=== PATIENT | female | born 1995 | race Caucasian/White ===

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

== ENCOUNTER 2017-01-20 13:24 | Emergency (ER) | payer MEDICAID ==
[~2017-01-20] VITALS: Ht 160 cm; Wt 84.8 kg
[~2017-01-20 13:24] MED LIST changes: +ZITHROMAX Z PA250 MG PO; +ZOFRAN ODT4 MG PO
[2017-01-20] MEDS ORDERED: HYDROXYZINE50 MG PO (14:46)
--- NOTE | 2017-01-20 14:47 | Emergency Room Report ---
History of Present Illness Time Seen by [id number] Presenting Problem in Triage Pt arrived:Walked Presenting Problem:PATIENT ENDORSING THAT SHE WAS AT WORK AND HAD ANXIETY ATTACK AND THEY CHECKED HER BLOOD PRESSURE. STATES, "IT WAS HIGH." UNABLE TO GIVE A NUMBER. PATIENT PRESENTS PLAYING ON CELL PHONE DURING ASSESSMENT. 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 N Clinical Suspician of Infection? N Mental Status: 1 - Regular (Normal Baseline) Sepsis Risk:Possible Sepsis Risk Have you (or family members/close friends) recently traveled outside the [place]? N If Yes, where/when: Have you had exposure to infectious disease within the past month? TB? Other? Specify: Source patient, RN notes reviewed, family, RN/MD Exam Limitations no limitations Comment This is a 21-year-old girl arriving to the emergency room with her mother after having an anxiety attack secondary to her breaking up with her current boyfriend. Patient has been reportedly seen hyperventilating, complaining with generalized weakness, perioral numbness, fingertips numbness, tremulous, very emotional, tearful. Patient is also concerned with her blood pressure being elevated, 159/92. ALLERGIES Coded Allergies: amoxicillin (Intermediate, I-HIVES 12/01/15) Home Medications Active Scripts Ondansetron (Zofran 4MG Odt) 4 MG PO Q6HP PRN NAUSEA AND VOMITING #6 ODT Prov: 10/05/16 History Medical History General CAD? No Angina: No NM: No Hypertension? No Hyperlipidemia? No CHF? No DVT? No PE? No COPD? No Asthma? No Anemia? No GERD? No Gastric ulcers? No GI Bleed? No Hernia? No Thyroid Problems? No Hypothyroidism? No CVA? No Seizures? No Diabetes? No Insulin Dependent: No Insulin Pump: No Home FSBS? No Renal Insuffiency? No End Stage Renal Disease? No UTI? Yes Stones? No BPH? No GB Disease: No Nephritic Syndrome? No Asplenia? No Hepatitis? No Sickle Cell Disease? No Arthritis? No Migraines? No Cataracts? No Glaucoma? No MRSA? No HIV? No TB? No Anxiety? No Depression? No Cancer? No More? 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 No: respiratory distress. Lung Sounds bilateral: normal breath sounds, lungs clear. 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 No Comment Poni evaluation patient appears medically stable, in no acute distress. Advised patient of need to follow-up with PCP regarding further management of her anxiety/panic attacks. Results/Orders Current Medication Orders Sig/Shobha Start time Last Medication Dose Route Stop Time Status Admin Lorazepam 0 .STK-MED ONE 01/20 1451 DC .ROUTE Lorazepam 1 MG ONCE ONE 01/20 1445 DC 01/20 PO 01/20 1446 1454 Orders Procedure Date/time Status 12 LEAD EKG-HARPREETSON (INITIAL) 01/20 UNK Active Departure Departure Time of Disposition 1445 Disposition DC Home or Self Care(routine) Clinical Impression Primary Impression: Anxiety attack Condition STABLE Referrals Arnav Reeder APRN (Family): 2 Days-Call Office if not better Patient Instructions DI for Anxiety -- Adult Additional Instructions Please follow-up with your PCP if not better within 2 days. Take the medications prescribed as directed. Discharge Counseling Counseled pt/family regarding diagnosis, test results, medications/RX, home care, follow up needs Comment Please follow-up with your PCP if not better within 2 days. Take the medications prescribed as directed. Prescriptions Current Visit Scripts Hydroxyzine Hcl (Hydroxyzine) 50 MG PO Q8HP PRN anxiety #20 CAP ED Critical Care Critical Care No at 0905
--- NOTE | 2017-01-20 14:47 | Emergency Room Report ---
History of Present Illness Time Seen by [id number] Presenting Problem in Triage Pt arrived:Walked Presenting Problem:PATIENT ENDORSING THAT SHE WAS AT WORK AND HAD ANXIETY ATTACK AND THEY CHECKED HER BLOOD PRESSURE. STATES, "IT WAS HIGH." UNABLE TO GIVE A NUMBER. PATIENT PRESENTS PLAYING ON CELL PHONE DURING ASSESSMENT. 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 N Clinical Suspician of Infection? N Mental Status: 1 - Regular (Normal Baseline) Sepsis Risk:Possible Sepsis Risk Have you (or family members/close friends) recently traveled outside the [place]? N If Yes, where/when: Have you had exposure to infectious disease within the past month? TB? Other? Specify: Source patient, RN notes reviewed, family, RN/MD Exam Limitations no limitations Comment This is a 21-year-old girl arriving to the emergency room with her mother after having an anxiety attack secondary to her breaking up with her current boyfriend. Patient has been reportedly seen hyperventilating, complaining with generalized weakness, perioral numbness, fingertips numbness, tremulous, very emotional, tearful. Patient is also concerned with her blood pressure being elevated, 159/92. ALLERGIES Coded Allergies: amoxicillin (Intermediate, I-HIVES 12/01/15) Home Medications Active Scripts Ondansetron (Zofran 4MG Odt) 4 MG PO Q6HP PRN NAUSEA AND VOMITING #6 ODT Prov: 10/05/16 History Medical History General CAD? No Angina: No CT: No Hypertension? No Hyperlipidemia? No CHF? No DVT? No PE? No COPD? No Asthma? No Anemia? No GERD? No Gastric ulcers? No GI Bleed? No Hernia? No Thyroid Problems? No Hypothyroidism? No CVA? No Seizures? No Diabetes? No Insulin Dependent: No Insulin Pump: No Home FSBS? No Renal Insuffiency? No End Stage Renal Disease? No UTI? Yes Stones? No BPH? No GB Disease: No Nephritic Syndrome? No Asplenia? No Hepatitis? No Sickle Cell Disease? No Arthritis? No Migraines? No Cataracts? No Glaucoma? No MRSA? No HIV? No TB? No Anxiety? No Depression? No Cancer? No More? 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 No: respiratory distress. Lung Sounds bilateral: normal breath sounds, lungs clear. 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 No Comment Poni evaluation patient appears medically stable, in no acute distress. Advised patient of need to follow-up with PCP regarding further management of her anxiety/panic attacks. Results/Orders Current Medication Orders Sig/Shobha Start time Last Medication Dose Route Stop Time Status Admin Lorazepam 0 .STK-MED ONE 01/20 1451 DC .ROUTE Lorazepam 1 MG ONCE ONE 01/20 1445 DC 01/20 PO 01/20 1446 1454 Orders Procedure Date/time Status 12 LEAD EKG-HARPREETSON (INITIAL) 01/20 UNK Active Departure Departure Time of Disposition 1445 Disposition DC Home or Self Care(routine) Clinical Impression Primary Impression: Anxiety attack Condition STABLE Referrals Arnav Reeder APRN (Family): 2 Days-Call Office if not better Patient Instructions DI for Anxiety -- Adult Additional Instructions Please follow-up with your PCP if not better within 2 days. Take the medications prescribed as directed. Discharge Counseling Counseled pt/family regarding diagnosis, test results, medications/RX, home care, follow up needs Comment Please follow-up with your PCP if not better within 2 days. Take the medications prescribed as directed. Prescriptions Current Visit Scripts Hydroxyzine Hcl (Hydroxyzine) 50 MG PO Q8HP PRN anxiety #20 CAP ED Critical Care Critical Care No at 0905
[2017-01-20 14:53] VITALS: BP 141/85
== END 2017-01-20 14:58 | disposition home or self-care (01) ==
LOC: ER 13:24
DX: F41.1 Generalized anxiety disorder (principal); F43.0 Acute stress reaction

== ENCOUNTER 2017-03-22 11:54 | Emergency (ER) | payer MEDICAID ==
[~2017-03-22] VITALS: Ht 157.5 cm; Wt 86.2 kg
[~2017-03-22 11:54] MED LIST changes: +HYDROXYZINE50 MG PO
--- OUTSIDE RECORDS SUMMARY | 2017-03-22 12:07 | External Medical Summary Rpt | CCD ---
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 Name Role Phone TREVON LESTER Unavailable Unavailable Juan Worthington MD, Unavailable Unavailable Juan MCCOY MD, Unavailable Unavailable SAJI MCCOY MD [facility] Unavailable Unavailable INC, [facility], [facility]available Unavailable [facility], [facility]available Unavailable [facility] Unavailable Unavailable [facility], [facility] Henry Oneal MD, Unavailable Unavailable [facility], Unavailable Unavailable PLL[facility], [facility], [facility], Unavailable Unavailable [facility] Unavailable Unavailable [id number] [address] [id number], [facility] [id number] [address] [phone] SCIFRES, SCIFRES Unavailable Unavailable VEENA JYOTI DO, Unavailable Unavailable VEENA JYOTI DO [facility] Unavailable Unavailable DEPT [facility], [facility] Marcus English Unavailable Unavailable TANIYA LOONEY, Marcus Le MD, Unavailable Unavailable Marcus Le MD Purpose Continuity of Care Document - 07-05-2012 through 2016 Problems Code Diagnosis DOS Provider Status K529 NONINFECTIV 10-05-2016 [facility] ITIS & COLITIS UNS H5203 HYPERMETROP 09-03-2016 [facility] IA BILATERAL X58871 AC 08-22-2016 [facility] SUPPURATIVE PHYSICIAN OM W/O GROUP RUPT EAR DRUM RECUR RT EAR J069 ACUTE UPPER 07-27-2016 [facility] RESPIRATORY INFECTION UNSPECIFIED K5289 OTH SPEC 07-27-2016 [facility] NONINFECTIV E GASTROENTER ITIS & COLITIS N369 URETHRAL 06-01-2016 [facility] DISORDER UNSPECIFIED J029 ACUTE 05-27-2016 [facility] PHARYNGITIS [facility], [facility] UNSPECIFIED R05 COUGH 05-27-2016 [facility] R0602 SHORTNESS 05-27-2016 [facility] OF BREATH [facility], [facility] R0989 OTH SPEC SX 05-27-2016 [place] [facility] THE IMAGING ASS CIRC & RESP SYS J00 ACUTE 05-26-2016 [facility] NASOPHARYNG PHYSICIAN ITIS COMMON GROUP COLD R112 NAUSEA WITH 05-26-2016 [facility] VOMITING PHYSICIAN UNSPECIFIED GROUP J0190 ACUTE 05-22-2016 [facility] SINUSITIS UNSPECIFIED C24508N INSECT BITE 05-10-2016 [facility] RT FRONT INC WALL THORAX INIT T03937A INSECT BITE 05-10-2016 [facility] LT FRONT INC WALL THORAX INIT K47891Y INSECT BITE 05-10-2016 [facility] NONVENOM [facility], UNS FRONT PLLC WALL THORAX INIT L39347H INSECT BITE 05-10-2016 [facility] ABDOMINAL [facility], WALL PLLC INITIAL ENCOUNTER L299 PRURITUS 05-09-2016 [facility] UNSPECIFIED PHYSICIANS, PLLC C9160VA INSCT BITE 05-09-2016 [facility] OTH PART INC HEAD INIT ENCNTR V21987O INSECT BITE 05-09-2016 [facility] NONVENOMOUS INC RT LOWER LEG INITIAL ENC R21394T INSECT BITE 05-09-2016 [facility] NONVENOMOUS INC LT LOWER LEG INITIAL ENC N920 EXCESS & 05-06-2016 [facility] FREQUENT PHYSICIANS MENSTRUATIO GROUP N W/REGULAR CYCLE N944 PRIMARY 05-06-2016 [facility] DYSMENORRHE PHYSICIANS A GROUP R102 PELVIC AND 05-06-2016 [facility] PERINEAL PHYSICIANS PAIN GROUP R1084 GENERALIZED 05-06-2016 [facility] ABDOMINAL PAIN R1030 LOWER 05-03-2016 [facility]BDOMINAL [facility] PAIN PLLC UNSPECIFIED G38441 ACUTE 04-16-2016 [facility] SUPPURATIVE PHYSICIAN OM W/O GROUP RUPT EAR DRUM BILAT N3000 ACUTE 03-13-2016 [facility] CYSTITIS [facility], WITHOUT PLLC HEMATURIA N390 URINARY 03-13-2016 [facility] TRACT [facility], INFECTION PLLC SITE NOT SPECIFIED U84392 PAIN IN 12-01-2015 [place] LEFT [facility] D53026M CONTUSION 12-01-2015 [facility] LT GREAT [facility], TOE W/O PLLC DAMAGE NAIL INIT ENC K140 GLOSSITIS 11-21-2015 [facility] INC L089 LOCAL INF 11-21-2015 [facility] THE SKIN & PHYSICIANS, SUBCUTANEOU PLLC S TISSUE UNS K8020 CALCULUS GB 08-09-2015 [place] W/O MEDICAL CHOLECYSTIT IMAGING ASS IS W/O OBSTRUCTION R1011 RIGHT UPPER 08-09-2015 [facility] PAIN INC R109 UNSPECIFIED 08-09-2015 [place] ABDOMINAL [facility]ICAL PAIN IMAGING ASS K8050 CALCULUS BD 08-08-2015 [facility] CHOLANGITIS INC /CHOLECYST W/O OBST R1033 PERIUMBILIC 08-08-2015 [place] PAIN [facility]ICAL [facility] R079 CHEST PAIN 07-01-2015 [place] UNSPECIFIED [facility]ICAL IMAGING ASS R091 PLEURISY 07-01-2015 [facility] INC L600 INGROWING 06-13-2015 [facility] L259 UNSPECIFIED 06-04-2015 [facility] CONTACT PHYSICIANS DERMATITIS GROUP UNSPECIFIED CAUSE M2570 OSTEOPHYTE 04-18-2015 [facility] UNSPECIFIED PODIATRY JOINT D29311E UNS OPEN 04-18-2015 [facility] WOUND UNS [facility]ICIANS, TOES PLLC W/DAMAGE NAIL INITIAL Z3041 ENCOUNTER 03-12-2015 [facility] DEPT E JORGE CONTRACEPTI VE PILLS Z3189 ENCOUNTER 03-12-2015 [facility] FOR OTHER DISTRICT PROCREATIVE HLTH DEPT MANAGEMENT JORGE S62340 SWIMMERS 03-06-2015 [facility] EAR [facility], BILATERAL PLLC H6093 UNSPECIFIED 03-06-2015 [facility] OTITIS [facility], EXTERNA PLLC BILATERAL J020 STREPTOCOCC 03-06-2015 [facility] AL [facility], PHARYNGITIS PLLC Z136 ENCOUNTER 02-26-2015 [facility] SCREENING DISTRICT FOR HLTH DEPT CARDIOVASCU JORGE LAR DISORDERS Z308 ENCOUNTER 02-26-2015 [facility] FOR OTHER DISTRICT CONTRACEPTI HLTH DEPT VE JORGE MANAGEMENT 2449 UNSPECIFIED 02-03-2015 [facility], HYPOTHYROID PLLC ISM 7804 DIZZINESS 02-03-2015 [facility] GID[facility] 5990 URINARY 01-22-2015 [facility] TRACT DISTRICT INFECTION HLTH DEPT SITE NOT JORGE SPECIFIED 5589 OTH&UNSPEC 01-14-2015 [facility] NONINFECTIO [facility] US INC GASTROENTER ITIS&COLITI S V2501 GENERAL 12-25-2014 [facility] DEPT N ORAL JORGE CONTRACEPTS 382.9 382.9 07-10-[address] [address] [facility] MEDIA NOS Hospital 462 462 ACUTE 07-10-2013 [facility] PHARYNGITIS [facility] 465.9 465.9 ACUTE 07-10-2013 [facility] URI NOS [facility] 706.1 706.1 ACNE 06-28-2013 [facility] NEC [facility] 382.00 382.00 AC 06-27-[address] [facility] [address] [facility] MEDIA [facility] Hospital V14.1 V14.1 06-27-[address] [facility] HX-ANTIBIOT [facility] ALLERGY [facility] NEC 523.00 523.00 05-29-2013 [facility] GINGIVITIS, Hospital PLAQUE INDUCED V14.0 V14.0 05-29-[address] [facility] [address]X-P[address] [facility] IN ALLERGY Hospital 842.10 842.10 04-26-[address] [facility] [address] [facility] HAND [facility] E849.0 E849.0 04-26-2013 [facility] ACCIDENT IN [facility] E885.9 E885.9 FALL 04-26-[address] [facility] SLIPPING, Hospital TRIPPING, OR STUMBLING [facility] 380.10 380.10 04-04-2013 [facility] INFEC [facility] EXTERNA NOS 521.00 521.00 02-03-2013 [facility] DENTAL [facility] CARIES 826.0 826.0 FX 08-08-2012 [facility] PHALANX, [facility] FOOT-CLOSED Hospital E917.3 E917.3 08-08-2012 [facility] FURNIT W/O [facility] Hospital F41.0 PANIC DISORDER WITHOUT AGORAPHOBIA [id number] J02.9 ACUTE PHARYNGITIS , UNSPECIFIED K12.2 CELLULITIS AND ABSCESS OF MOUTH K52.9 NONINFECTIV E GASTROENTER ITIS AND COLITIS, UNSPECIFIED K80.50 CALCULUS OF BILE DUCT W/O CHOLANGITIS OR CHOLECYST W/O OBST N39.0 URINARY TRACT INFECTION, SITE NOT SPECIFIED R09.1 PLEURISY R10.9 UNSPECIFIED ABDOMINAL PAIN S06.0X9A CONCUSSION W LOSS OF CONSCIOUSNE SS OF UNSP DURATION, INIT S16.1XXA STRAIN OF MUSCLE, FASCIA AND TENDON AT NECK LEVEL, INIT S60.229A CONTUSION OF UNSPECIFIED HAND, INITIAL ENCOUNTER S90.122A CONTUSION OF LEFT LESSER TOE(S) W/O DAMAGE TO NAIL, INIT W57.XXXA BIT/STUNG BY NONVENOM INSECT \T\ OTH NONVENOM ARTHROPODS, INIT Allergies, Adverse Reactions, Alerts Type Drug Allergy Adverse Reaction to Substance Substance Reaction Severity Amoxicillin I-RASH Mild Medications Na ND Rx Da Fi Fi Am Da Di Ph RX Ph St me C No te ll ll ou ys ag ar # ys at rm s nt no ma ic us Or Da si cy ia de te s n re d AZ 50 11 11 0 60 5 RI 12 Wa Ac IT 11 -0 -0 .0 TE 06 ld ti HR 10 3- 3- 00 88 en ve OM 78 20 20 AI 7 YC 76 17 17 D Me IN 6 PH li AR ss 25 MA a 0 CY E MG 03 TA 93 BL 8 ET # 03 93 HY 16 09 10 [address] 71 -0 -0 .0 00 TE ti OX 40 6- 6- 00 01 ve YZ 08 20 20 19 AI IN 31 17 17 84 D E 0 97 PH HC AR L MA 50 CY MG #3 93 TA 8 BL ET ON 65 05 06 6. 2 00 RI Ac DA 86 -2 -2 00 00 TE ti NS 20 3- 3- 0 01 ve ET 39 20 20 18 AI RO 01 17 17 50 D N 0 28 PH OD AR T MA 4 CY MG #3 TA 93 BL 8 ET HY 00 05 06 [address] 40 -2 -2 .0 00 TE ti OC 60 4- 3- 00 01 ve OD 12 20 20 18 AI ON 40 17 17 53 D -A 1 24 PH CE AR TA MA ND CY NO PH #3 93 7. 8 5- 32 5 CE 00 02 03 20 10 00 RI Ac FD 78 -1 -2 .0 00 TE ti IN 12 6- 4- 00 01 ve IR 17 20 20 17 AI 66 17 17 15 D 30 0 57 PH 0 AR MG MA CY CA PS #3 UL 93 E 8 NE 24 02 03 10 10 00 RI Ac OM 20 -1 -2 .0 00 TE ti YC 80 6- 4- 00 01 ve IN 63 20 20 17 AI -P 56 17 17 15 D OL 2 58 PH YM AR YX MA IN CY -H C #3 EA 93 R 8 LANDAVERDE SP CI 00 01 02 20 10 00 RI Ac VA 14 -1 -1 .0 00 TE ti OF 39 6- 7- 00 01 ve LO 92 20 20 16 AI XA 80 17 17 70 D CI 1 09 PH N AR HC MA L CY 50 0 #3 MG 93 8 TA B AZ 50 01 02 6. 5 00 RI Ac IT 11 -1 -1 00 00 TE ti HR 10 2- 7- 0 01 ve OM 78 20 20 16 AI YC 76 17 17 64 D IN 6 17 PH AR 25 MA 0 CY MG #3 TA 93 BL 8 ET ON 65 01 02 9. 3 00 RI Ac DA 86 -1 -1 00 00 TE ti NS 20 0- 0- 0 01 ve ET 39 20 20 16 AI RO 01 17 17 60 D N 0 87 PH OD AR T MA 4 CY MG #3 TA 93 BL 8 ET BR 64 01 02 50 5 00 RI Ac OM 37 -1 -1 .0 00 TE ti PH 60 0- 0- 00 01 ve EN 65 20 20 16 AI IR 71 17 17 60 D -P 6 89 PH SE AR UD MA OE CY PH ED #3 -D 93 M 8 SY R CE 16 01 02 30 30 00 RI Ac TI 71 -0 -1 .0 00 TE ti RI 40 6- 0- 00 01 ve ZI 27 20 20 16 AI NE 10 17 17 56 D 2 91 PH HC AR L MA 10 CY MG #3 93 TA 8 BL ET NA 00 12 01 60 30 00 RI Ac VA 09 -2 -2 .0 00 TE ti OX 31 1- 0- 00 01 ve EN 00 20 20 16 AI 60 [address] 1 20 PH AR 50 MA 0 CY MG #3 TA 93 BL 8 ET PO 62 12 01 52 30 00 RI Ac LY 17 -2 -2 7. 00 TE ti ET 50 1- 0- 00 01 ve HY 44 20 20 0 16 AI LE 23 16 17 35 D NE 1 24 PH AR GL MA YC CY OL #3 33 93 50 8 PO WD CL 63 12 01 15 5 00 RI Ac IN 30 -0 -0 .0 00 TE ti DA 40 1- 9- 00 01 ve MY 69 20 20 16 AI CI 30 16 17 05 D N 1 26 PH HC AR L MA 30 CY 0 MG #3 93 CA 8 PS UL E AC 51 01 0 No ET 07 -1 AM 90 3- Lo IN 16 20 ng OP 19 14 er HE 9H N Ac W/ ti CO ve DE IN E #3 TA K BE 57 11 0 No NZ 66 -0 ON 40 6- Lo AT 13 20 ng AT 38 13 er E 8 10 Ac 0 ti MG ve CA PS UL E LI 00 09 0 No DO 05 -2 CA 48 0- Lo IN 50 20 ng E 01 13 er 2% 6 Ac ti SC ve OU S 15 ML UD C AC 51 09 0 No ET 07 -2 AM 90 0- Lo IN 16 20 ng OP 19 13 er HE 9H N Ac W/ ti CO ve DE IN E #3 TA K Ib 62 09 0 No up 58 -1 ro 40 6- Lo fe 74 20 ng n 60 13 er 40 1 0M Ac G ti Ta ve bl et LA [address] 40 -1 AT 97 9- Lo ED 95 20 ng 30 13 er RI 9 NG Ac ER ti S ve IN JE CT IO N Sa 63 02 0 No li 80 -1 ne 70 9- Lo 10 20 ng Fl 07 13 er us 5 h Ac 10 ti ML ve Sy ri ng e ON 00 02 0 No DA 64 -1 NS 16 9- Lo ET 08 20 ng RO 02 13 er N 5 HC Ac L ti 4 ve MG /2 ML AL Vital Signs 07-10-2013 15:24 Name Value Interpretat Reference Comment ion Range Body 98.1 [degF] Temperature BP 75 mm[Hg] Diastolic BP Systolic 122 mm[Hg] Heart 88 /min Rate/Pulse O2% 98 % Respiratory 20 /min Rate 07-10-2013 14:52 Name Value Interpretat Reference Comment ion Range BP 66 mm[Hg] Diastolic BP Systolic 126 mm[Hg] Heart 94 /min Rate/Pulse O2% 97 % Respiratory 20 /min Rate 06-28-2013 14:48 Name Value Interpretat Reference Comment ion Range Body 98.4 [degF] Temperature BP 77 mm[Hg] Diastolic BP Systolic 147 mm[Hg] Heart 77 /min Rate/Pulse O2% 97 % Respiratory 22 /min Rate 06-28-2013 14:45 Name Value Interpretat Reference Comment ion Range Body 98.4 [degF] Temperature BP 77 mm[Hg] Diastolic BP Systolic 147 mm[Hg] Heart 77 /min Rate/Pulse O2% 97 % Respiratory 22 /min Rate 06-27-2013 17:28 Name Value Interpretat Reference Comment ion Range BP 66 mm[Hg] Diastolic BP Systolic 142 mm[Hg] Heart 100 /min Rate/Pulse O2% 99 % Respiratory 20 /min Rate 05-29-2013 20:49 Name Value Interpretat Reference Comment ion Range Body 99.0 [degF] Temperature BP 86 mm[Hg] Diastolic BP Systolic 120 mm[Hg] Heart 80 /min Rate/Pulse O2% 98 % Respiratory 16 /min Rate 05-29-2013 19:55 Name Value Interpretat Reference Comment ion Range BP 62 mm[Hg] Diastolic BP Systolic 129 mm[Hg] Heart 97 /min Rate/Pulse O2% 97 % Respiratory 16 /min Rate 04-26-2013 17:50 Name Value Interpretat Reference Comment ion Range Body 98.3 [degF] Temperature BP 78 mm[Hg] Diastolic BP Systolic 123 mm[Hg] Heart 94 /min Rate/Pulse O2% 96 % Respiratory 20 /min Rate 04-26-2013 17:49 Name Value Interpretat Reference Comment ion Range Body 98.3 [degF] Temperature BP 78 mm[Hg] Diastolic BP Systolic 123 mm[Hg] Heart 94 /min Rate/Pulse O2% 96 % Respiratory 20 /min Rate 04-04-2013 10:15 Name Value Interpretat Reference Comment ion Range Body 98.4 [degF] Temperature BP 75 mm[Hg] Diastolic BP Systolic 129 mm[Hg] Heart 81 /min Rate/Pulse O2% 100 % Respiratory 18 /min Rate 04-04-2013 10:14 Name Value Interpretat Reference Comment ion Range BP 75 mm[Hg] Diastolic BP Systolic 129 mm[Hg] Heart 81 /min Rate/Pulse O2% 100 % Respiratory 18 /min Rate 03-22-2013 18:13 Name Value Interpretat Reference Comment ion Range Body 98.6 [degF] Temperature BP 63 mm[Hg] Diastolic BP Systolic 110 mm[Hg] Heart 94 /min Rate/Pulse O2% 99 % Respiratory 18 /min Rate 03-22-2013 17:36 Name Value Interpretat Reference Comment ion Range BP 62 mm[Hg] Diastolic BP Systolic 126 mm[Hg] Heart 77 /min Rate/Pulse O2% 96 % Respiratory 20 /min Rate 02-03-2013 02:27 Name Value Interpretat Reference Comment ion Range BP 82 mm[Hg] Diastolic BP Systolic 143 mm[Hg] Heart 93 /min Rate/Pulse O2% 100 % Respiratory 20 /min Rate 01-30-2013 08:59 Name Value Interpretat Reference Comment ion Range BP 62 mm[Hg] Diastolic BP Systolic 136 mm[Hg] Heart 100 /min Rate/Pulse O2% 98 % Respiratory 20 /min Rate 08-08-2012 18:19 Name Value Interpretat Reference Comment ion Range BP 72 mm[Hg] Diastolic BP Systolic 121 mm[Hg] Heart 63 /min Rate/Pulse O2% 98 % 07-05-2012 19:11 Name Value Interpretat Reference Comment ion Range Body 98.3 [degF] Temperature BP 49 mm[Hg] Diastolic BP Systolic 108 mm[Hg] Heart 82 /min Rate/Pulse O2% 99 % Respiratory 17 /min Rate 07-05-2012 19:03 Name Value Interpretat Reference Comment ion Range Body 98.3 [degF] Temperature 07-05-2012 18:06 Name Value Interpretat Reference Comment ion Range BP 67 mm[Hg] Diastolic BP Systolic 106 mm[Hg] Heart 96 /min Rate/Pulse O2% 98 % Respiratory 17 /min Rate Results Labs Lab Lab Date Result Refere Interp Status Commen Order Detail nces retati t Range on CHLAMYDIA AND GONORRHEA TESTING (12-25-2014 08:45) Chlamyd NEGATIV complet ia 015 E ed trachom 08:45 atis rRNA [Presen ce] in Unspeci fied specime n by Probe & target amplifi cation method Neisser NEGATIV complet ia 015 E ed gonorrh 08:45 oeae rRNA [Presen ce] in Unspeci fied specime n by Probe & target amplifi cation method CHLAMYDIA AND GONORRHEA TESTING (12-25-2014 08:45) COLLECT A. complet OR 015 ALFRED, ed 08:45 RN ETHNICI WHITE, complet TY 015 NON-HIS ed 08:45 PANIC KIT complet EXPIRAT 015 6 ed ION 08:45 DATE SYMPTOM NO complet S 015 ed 08:45 REASON INITIAL complet FOR 015 FAMILY ed REQUEST 08:45 PLANNIN G VISIT SPECIME URINE complet N 015 ed SOURCE 08:45 PREGNAN NO complet T 015 ed 08:45 CHART 401-53- complet NUMBER 015 5116 ed 08:45 Chlamyd Pending complet ia 015 ed trachom 08:45 atis rRNA [Presen ce] in Unspeci fied specime n by Probe & target amplifi cation method Neisser 11-2 Pending complet ia 015 ed gonorrh 08:45 oeae rRNA [Presen ce] in Unspeci fied specime n by Probe & target amplifi cation method STREP SCREEN (RAPID) (07-10-2013 13:52) STREP NEGATIV complet SCREEN 014 E ed (RAPID) 13:52 STREP SCREEN (RAPID) (03-22-2013 16:51) STREP NEGATIV complet SCREEN 013 E ed (RAPID) 16:51 COMPREHENSIVE METABOLIC PANEL (07-05-2012 18:00) Glucose 87 74-106 complet 013 mg/dL ed Bld-mCn 18:00 c BUN 8 mg/dL 7-18 complet Bld-mCn 013 ed c 18:00 Creat 0.8 0.6-1.0 complet SerPl-m 013 mg/dL ed Cnc 18:00 ESTIMAT 163 50-200 complet ED 013 ML/MIN ed CREATIN 18:00 INE CLEARAN CE Sodium 137 136-145 complet SerPl-s 013 mmoL/L ed Cnc 18:00 Potassi 3.5 3.5-5.1 complet um 013 mmoL/L ed SerPl-s 18:00 Cnc Chlorid 103 98-107 complet e 013 mmoL/L ed SerPl-s 18:00 Cnc CO2 28 21.0-32 complet SerPl-s 013 mmoL/L .0 ed Cnc 18:00 Calcium 07-05-2 8.8 8.5-10. complet 013 mg/dL 1 ed SerPl-m 18:00 Cnc Prot 07-05-2 7.5 6.4-8.2 complet SerPl-m 013 gm/dL ed Cnc 18:00 Albumin 07-05-2 3.7 3.4-5.0 complet 013 gm/dL ed SerPl-m 18:00 Cnc Globuli 07-05- 3.8 1.3-3.2 complet n 013 gm/dL ed Ser-mCn 18:00 c Albumin 1.0 UNK 1.1-1.8 complet /Glob 013 ed SerPl-m 18:00 Rto Bilirub 2 0.3 0.2-1.0 complet 013 mg/dL ed SerPl-m 18:00 Cnc AST 16 U/L 15-37 complet SerPl-c 013 ed Cnc 18:00 ALT 41 U/L 30-65 complet SerPl-c 013 ed Cnc 18:00 ALP 158 U/L 50-136 complet SerPl-c 013 ed Cnc 18:00 B-HCG Ur Ql (07-05-2012 17:04) B-HCG NEGATIV NEG complet Ur Ql 013 E ed 17:04 URINALYSIS/COMPLETE (07-05-2012 17:04) URINE YELLOW YELLOW complet COLOR 013 ed 17:04 URINE SL CLEAR complet APPEARA 013 CLOUDY ed NCE 17:04 URINE NEGATIV NEG complet GLUCOSE 013 E ed - 17:04 DIPSTIC K URINE NEGATIV NEG complet BILIRUB 013 E ed IN - 17:04 DIPSTIC K URINE 07-05- NEGATIV NEG complet KETONE 013 E mg/dL ed 17:04 URINE 07-05- 1.020 1.005-1 complet SPECIFI 013 UNK .030 ed C 17:04 GRAVITY URINE 07-05- NEGATIV NEG complet BLOOD 013 E ed 17:04 URINE 07-05- 6.5 UNK 5.0-8.5 complet PH 013 ed 17:04 URINE NEGATIV NEG complet PROTEIN 013 E mg/dL ed - 17:04 DIPSTIC K URINE 07-05- 0.2 NEG complet UROBILI 013 E.U./dL ed NOGEN - 17:04 DIPSTIC K URINE 07-05- NEGATIV NEG complet NITRATE 013 E ed - 17:04 DIPSTIC K URINE 07-05- 1+ NEG complet LEUK 013 ed ESTERAS 17:04 E Procedures Procedure DOS Code Location Performer Comment APPLICATI 93.54 SAJI ON OF DARIUS LOONEY SPLINT Encounters Encounter Start End Date Code Location Per[facility] 7 [facility] 6 6 [facility] - 6 6 [facility]PATI[facility] - 6 6 [facility] 6 6 [facility] 6 6 [facility] 6 6 [facility] 6 6 [facility] 5 5 [facility] - 5 5 [facility] OUTPATIEN [facility] - 5 5 [facility] OUTPATIEN [facility] Emergency EJ English (ER) 4 14:13 4 15:31 [facility] Emergency EJ MONTES DO (ER) 4 14:27 4 14:48 [facility] Emergency EJ MONTES DO (ER) 4 17:16 4 17:28 [facility] Emergency EJ Oneal MD (ER) 4 18:51 4 20:50 [facility] Emergency EJ MCCOY MD (ER) 3 17:31 3 17:54 [facility] Emergency EJ Worthington MD (ER) 3 09:24 3 10:15 [facility] Emergency EJ English (ER) 3 17:21 3 18:18 [facility] Marcus Sosa. Emergency JE Oneal MD (ER) 3 02:00 3 02:27 [facility] Emergency EJ FIGUEREDO (ER) 3 08:50 3 09:00 [facility] Emergency EJ Le (ER) 3 18:12 3 18:20 [facility] Emergency EJ LEMON (ER) 3 17:05 3 19:12 [facility]
--- OUTSIDE RECORDS SUMMARY | 2017-03-22 12:07 | External Medical Summary Rpt | CCD ---
Author Author , FARNAZ RGEGORYSHENA Address Unknown Phone [email or web address] Providers Care Director Global Name Role Phone TREVON LESTER Unavailable Unavailable Juan Worthington MD, Unavailable Unavailable Juan MCCOY MD, Unavailable Unavailable SAJI MCCOY MD [facility] Un[facility] Un[facility] INC, [facility], Unavailable Unavailable [facility], [facility]available Unavailable [facility] Unavailable Unavailable IMAGING ASS, [facility] Henry Oneal MD, Unavailable Unavailable [facility], Unavailable Unavailable PLLC, [facility], [facility], Unavailable Unavailable [facility] Unavailable Unavailable [id number] # [id number], [facility] [id number] # 0393 SCIFRES, SCIFRES Unavailable Unavailable VEENA JYOTI DO, Unavailable Unavailable VEENA JYOTI DO [facility] Unavailable Unavailable DEPT [facility], [facility] DEPT [facility] Marcus English Unavailable Unavailable TANIYA LOONEY, Marcus Le MD, Unavailable Unavailable Marcus Le MD Purpose Continuity of Care Document - 07-05-2012 through 2016 Problems Code Diagnosis DOS Provider Status K529 NONINFECTIV 10-05-2016 [facility], [facility]ENTER PLLC ITIS & COLITIS UNS H5203 HYPERMETROP 09-03-2016 [facility] IA BILATERAL R78261 AC 08-22-2016 [facility] SUPPURATIVE PHYSICIAN OM W/O GROUP RUPT EAR DRUM RECUR RT EAR J069 ACUTE UPPER 07-27-2016 [facility] RESPIRATORY INFECTION UNSPECIFIED K5289 OTH SPEC 07-27-2016 [facility] NONINFECTIV E GASTROENTER ITIS & COLITIS N369 URETHRAL 06-01-2016 [facility] DISORDER UNSPECIFIED J029 ACUTE 05-27-2016 [facility] PHARYNGITIS [facility]ICIANS, PLLC UNSPECIFIED R05 COUGH 05-27-2016 [facility] R0602 SHORTNESS 05-27-2016 [facility] OF BREATH PHYSICIANS, PLLC R0989 OTH SPEC SX 05-27-2016 [place] & SIGNS MEDICAL INVLV THE IMAGING ASS CIRC & RESP SYS J00 ACUTE 05-26-2016 [facility] NASOPHARYNG PHYSICIAN ITIS COMMON GROUP COLD R112 NAUSEA WITH 05-26-2016 [facility] VOMITING PHYSICIAN UNSPECIFIED GROUP J0190 ACUTE 05-22-2016 [facility] SINUSITIS UNSPECIFIED [id number] INSECT BITE 05-10-2016 [facility] RT FRONT INC WALL THORAX INIT [id number] INSECT BITE 05-10-2016 [facility] LT FRONT INC WALL THORAX INIT V82097C INSECT BITE 05-10-2016 [facility] NONVENOM PHYSICIANS, UNS FRONT PLLC WALL THORAX INIT [id number] INSECT BITE 05-10-2016 [facility] ABDOMINAL PHYSICIANS, WALL PLLC INITIAL ENCOUNTER L299 PRURITUS 05-09-2016 [facility] UNSPECIFIED PHYSICIANS, PLLC [id number] INSCT BITE 05-09-2016 [facility] OTH PART INC HEAD INIT ENCNTR D43080H INSECT BITE 05-09-2016 [facility] NONVENOMOUS INC RT LOWER LEG INITIAL ENC F78480J INSECT BITE 05-09-2016 [facility] NONVENOMOUS INC LT LOWER LEG INITIAL ENC N920 EXCESS & 05-06-2016 [facility] FREQUENT PHYSICIANS MENSTRUATIO GROUP N W/REGULAR CYCLE N944 PRIMARY 05-06-2016 [facility] DYSMENORRHE PHYSICIANS A GROUP R102 PELVIC AND 05-06-2016 [facility] PERINEAL PHYSICIANS PAIN GROUP R1084 GENERALIZED 05-06-2016 [facility] ABDOMINAL PAIN R1030 LOWER 05-03-2016 [facility] ABDOMINAL [facility]ICIANS, PAIN PLLC UNSPECIFIED V15610 ACUTE 04-16-2016 [facility] SUPPURATIVE PHYSICIAN OM W/O GROUP RUPT EAR DRUM BILAT N3000 ACUTE 03-13-2016 [facility] CYSTITIS PHYSICIANS, WITHOUT PLLC HEMATURIA N390 URINARY 03-13-2016 [facility] TRACT PHYSICIANS, INFECTION PLLC SITE NOT SPECIFIED X55995 PAIN IN 12-01-2015 [place] LEFT TOES MEDICAL IM[facility]ING ASS [id number] CONTUSION 12-01-2015 [facility] LT GREAT PHYSICIANS, TOE W/O PLLC DAMAGE NAIL INIT ENC K140 GLOSSITIS 11-21-2015 [facility] INC L089 LOCAL INF 11-21-2015 [facility] THE SKIN & PHYSICIANS, SUBCUTANEOU PLLC S TISSUE UNS K8020 CALCULUS GB 08-09-2015 [place] W/O MEDICAL CHOLECYSTIT IMAGING ASS IS W/O OBSTRUCTION R1011 RIGHT UPPER 08-09-2015 [facility] PAIN INC R109 UNSPECIFIED 08-09-2015 [place] ABDOMINAL MEDICAL PAIN IMAGING ASS K8050 CALCULUS BD 08-08-2015 [facility] CHOLANGITIS INC /CHOLECYST W/O OBST R1033 PERIUMBILIC 08-08-2015 [place] AL PAIN MEDICAL IMAGING ASS R079 CHEST PAIN 07-01-2015 [place] UNSPECIFIED MEDICAL IMAGING ASS R091 PLEURISY 07-01-2015 [facility] INC L600 INGROWING 06-13-2015 [facility] NAIL PODIATRY L259 UNSPECIFIED 06-04-2015 [facility] CONTACT PHYSICIANS DERMATITIS GROUP UNSPECIFIED CAUSE M2570 OSTEOPHYTE 04-18-2015 [facility] UNSPECIFIED PODIATRY JOINT [id number] UNS OPEN 04-18-2015 [facility] WOUND UNS PHYSICIANS, TOES PLLC W/DAMAGE NAIL INITIAL Z3041 ENCOUNTER 03-12-2015 [facility] DEPT E JORGE CONTRACEPTI VE PILLS Z3189 ENCOUNTER 03-12-2015 [facility] FOR OTHER DISTRICT PROCREATIVE HLTH DEPT MANAGEMENT JORGE L78276 SWIMMERS 03-06-2015 [facility] E[facility] PHYSICIANS, BILATERAL PLLC [...] JORGE SPECIFIED 5589 OTH&UNSPEC 01-14-2015 [facility] NONINFECTIO [facility] GASTROENTER ITIS&COLITI S V2501 GENERAL 12-25-2014 [facility] DEPT N ORAL JORGE CONTRACEPTS 382.9 382.9 07-10-2013 [facility] OTITIS [facility] MEDIA NOS Hospital 462 462 ACUTE 07-10-2013 [place] PHARYNGITIS [facility] 465.9 465.9 ACUTE 07-10-2013 [facility] URI NOS [facility] 706.1 706.1 ACNE 06-28-2013 [facility] NEC [facility] 382.00 382.00 AC 06-27-2013 [facility] SUPP OTITIS [facility] MEDIA [facility] Hospital V14.1 V14.1 06-27-2013 [place] HX-ANTIBIOT [facility] ALLERGY [facility] NEC 523.00 523.00 05-29-2013 [facility] GINGIVITIS, Hospital PLAQUE INDUCED V14.0 V14.0 05-29-2013 [facility] HX-PENICILL [facility] IN ALLERGY Hospital 842.10 842.10 04-26-2013 [facility] SPRAIN OF [facility] HAND [facility] E849.0 E849.0 04-26-2013 [facility] ACCIDENT IN [facility] E885.9 E885.9 FALL 04-26-2013 [facility] FROM [facility] SLIPPING, Hospital TRIPPING, OR STUMBLING [facility] 380.10 380.10 04-04-2013 [facility] INFEC [facility] EXTERNA NOS 521.00 521.00 02-03-2013 [facility] DENTAL [facility] CARIES 826.0 826.0 FX 08-08-2012 [facility] PHALANX, [facility] FOOT-CLOSED Hospital E917.3 E917.3 08-08-2012 [place] FURNIT W/O [facility] Hospital F41.0 PANIC DISORDER WITHOUT AGORAPHOBIA [id number] J02.9 ACUTE PHARYNGITIS , UNSPECIFIED K12.2 CELLULITIS [...] 1 24 PH CE AR TA MA NC CY NO PH #3 93 7. 8 [...] 01 02 20 10 00 RI Ac IN 14 -1 -1 .0 00 TE ti [...] 12 01 60 30 00 RI Ac IN 09 -2 -2 .0 00 TE ti [...] End Date Code Location Performer Type Date [facility] - 7 7 [facility] - 7 7 [facility] 6 6 [facility] - 6 6 [facility] 6 6 [facility] 6 6 [facility] 6 [facility] 6 6 [facility] 5 5 [facility] 5 5 [facility] - 5 5 [facility] OUTPATIEN [facility] Emergency EJ English (ER) 4 14:13 4 15:31 [facility] Emergency EJ MONTES DO (ER) 4 14:27 4 14:48 [facility] Emergency EJ MONTES DO (ER) 4 17:16 4 17:28 [facility] Emergency EJ Oneal MD (ER) 4 18:51 4 20:50 [facility] Emergency EJ MCCOY MD (ER) 3 17:31 3 17:54 [facility] Emergency EJ Worthington MD (ER) 3 09:24 3 10:15 [facility] Emergency EJ English (ER) 3 17:21 3 18:18 [facility] Marcus Sosa. Emergency EJ Oneal MD (ER) 3 02:00 3 02:27 [facility] Emergency EJ FIGUEREDO (ER) 3 08:50 3 09:00 [facility] Emergency EJ Le (ER) 3 18:12 3 18:20 [facility] Marcus Emergency EJ LEMON (ER) 3 17:05 3 19:12 [facility]
--- OUTSIDE RECORDS SUMMARY | 2017-03-22 12:09 | External Medical Summary Rpt | CCD ---
Author Author , FARNAZ OSEI Address Unknown Phone [email or web address] Care Team Providers Care Welfare Interviewer Name Role Phone TREVON LESTER Unavailable Unavailable [facility] Un[facility] Un[facility] INC, [facility], Unavailable Unavailable [facility], Unavailable Unavailable [facility] Unavailable Unavailable IM[facility]ING [facility], [facility], Unavailable Unavailable PLLC, [facility], [facility], Unavailable Unavailable [facility] Unavailable Unavailable [id number] # 0393, [facility] [address] # 0393 SCIFRES, SCIFRES Unavailable Unavailable [facility] Unavailable Unavailable DEPT [facility] DEPT JORGE Purpose Continuity of Care Document - 12-25-2014 through 2016 Problems Code Diagnosis DOS Provider Status K529 NONINFECTIV 10-05-2016 [facility] E PHYSICIANS, GASTROENTER [facility] ITIS & COLITIS UNS H5203 HYPERMETROP 09-03-2016 [facility] IA BILATERAL P88162 AC 08-22-2016 [facility] SUPPURATIVE PHYSICIAN OM W/O GROUP RUPT EAR DRUM RECUR RT EAR J069 ACUTE UPPER 07-27-2016 [facility] RESPIRATORY INFECTION UNSPECIFIED K5289 OT SPEC 07-27-2016 [facility] NONINFECTIV E GASTROENTER ITIS & COLITIS N369 URETHRAL 06-01-2016 [facility] DISORDER UNSPECIFIED J029 ACUTE 05-27-2016 [facility] PHARYNGITIS PHYSICIANS, [facility] UNSPECIFIED R05 COUGH 05-27-2016 [facility] R0602 SHORTNESS 05-27-2016 [facility] OF BREATH PHYSICIANS, [facility] R0989 OT SPEC SX 05-27-2016 [place] & SIGNS MEDICAL INVLV THE IMAGING ASS CIRC & RESP SYS J00 ACUTE 05-26-2016 [facility] NASOPHARYNG PHYSICIAN ITIS COMMON GROUP COLD R112 NAUSEA WITH 05-26-2016 [facility] VOMITING PHYSICIAN UNSPECIFIED GROUP J0190 ACUTE 05-22-2016 [facility] SINUSITIS UNSPECIFIED N12156X INSECT BITE 05-10-2016 [facility] RT FRONT INC WALL THORAX INIT P19107B INSECT BITE 05-10-2016 [facility] LT FRONT INC WALL THORAX INIT P03117Q INSECT BITE 05-10-2016 [facility] NONVENOM PHYSICIANS, UNS FRONT PLLC WALL THORAX INIT O16297R INSECT BITE 05-10-2016 [facility] ABDOMINAL PHYSICIANS, WALL PLLC INITIAL ENCOUNTER L299 PRURITUS 05-09-2016 [facility] UNSPECIFIED PHYSICIANS, PLLC [id number] INSCT BITE 05-09-2016 [facility] OTH PART INC HEAD INIT ENCNTR Q01690Q INSECT BITE 05-09-2016 [facility] NONVENOMOUS INC RT LOWER LEG INITIAL ENC N47437L INSECT BITE 05-09-2016 [facility] NONVENOMOUS INC LT LOWER LEG INITIAL ENC N920 EXCESS & 05-06-2016 [facility] FREQUENT PHYSICIANS MENSTRUATIO GROUP N W/REGULAR CYCLE N944 PRIMARY 05-06-2016 [facility] DYSMENORRHE PHYSICIANS A GROUP R102 PELVIC AND 05-06-2016 [facility] PERINEAL PHYSICIANS PAIN GROUP R1084 GENERALIZED 05-06-2016 [facility] ABDOMINAL PAIN R1030 LOWER 05-03-2016 [facility] ABDOMINAL [facility]ICIANS, PAIN PLLC UNSPECIFIED S25479 ACUTE 04-16-2016 [facility] SUPPURATIVE PHYSICIAN OM W/O GROUP RUPT EAR DRUM BILAT N3000 ACUTE 03-13-2016 [facility] CYSTITIS PHYSICIANS, WITHOUT PLLC HEMATURIA N390 URINARY 03-13-2016 [facility] TRACT PHYSICIANS, INFECTION PLLC SITE NOT SPECIFIED Q44458 PAIN IN 12-01-2015 [place] LEFT TOES [facility]ICAL [facility] V17824R CONTUSION 12-01-2015 [facility] LT GREAT PHYSICIANS, TOE W/O PLLC DAMAGE NAIL INIT ENC K140 GLOSSITIS 11-21-2015 [facility] INC L089 LOCAL INF 11-21-2015 [facility] THE SKIN & PHYSICIANS, SUBCUTANEOU PLLC S TISSUE UNS K8020 CALCULUS GB 08-09-2015 [place] W/O MEDICAL CHOLECYSTIT IMAGING ASS IS W/O OBSTRUCTION R1011 RIGHT UPPER 08-09-2015 [facility] PAIN INC R109 UNSPECIFIED 08-09-2015 [place] ABDOMINAL MEDICAL PAIN IMAGING ASS K8050 CALCULUS BD 08-08-2015 [facility] CHOLANGITIS INC /CHOLECYST W/O OBST R1033 PERIUMBILIC 08-08-2015 [place] PA[facility] MEDICAL IM[facility]ING ASS R079 CHEST PAIN 07-01-2015 [place] UNSPECIFIED MEDICAL IMAGING ASS R091 PLEURISY 07-01-2015 [facility] INC L600 INGROWING 06-13-2015 [facility] PODIATRY L259 UNSPECIFIED 06-04-2015 [facility] CONTACT PHYSICIANS DERMATITIS GROUP UNSPECIFIED CAUSE M2570 OSTEOPHYTE 04-18-2015 [facility] UNSPECIFIED PODIATRY JOINT N85740F UNS OPEN 04-18-2015 [facility] WOUND UNS PHYSICIANS, TOES PLLC W/DAMAGE NAIL INITIAL Z3041 ENCOUNTER 03-12-2015 [facility] DEPT E JORGE CONTRACEPTI VE PILLS Z3189 ENCOUNTER 03-12-2015 [facility] OTHER DISTRICT PROCREATIVE HLTH DEPT MANAGEMENT JORGE U21422 SWIMMERS 03-06-2015 [facility] PH[facility]ICIANS, BILATERAL PLLC H6093 UNSPECIFIED 03-06-2015 [facility] OTITIS PHYSICIANS, EXTERNA PLLC BILATERAL J020 STREPTOCOCC 03-06-2015 [facility] AL PHYSICIANS, PHARYNGITIS PLLC Z136 ENCOUNTER 02-26-2015 [facility] SCREENING DISTRICT FOR HLTH DEPT CARDIOVASCU JORGE LAR DISORDERS Z308 ENCOUNTER 02-26-2015 [facility] OTHER [facility] CONTRACEPTI HLTH DEPT VE JORGE MANAGEMENT 2449 UNSPECIFIED 02-03-2015 [facility], HYPOTHYROID PLLC ISM 7804 DIZZINESS 02-03-2015 [facility] GIDDINESS INC 5990 URINARY 01-22-2015 [facility] TRACT DISTRICT INFECTION TH DEPT SITE NOT JORGE SPECIFIED 5589 OTH&UNSPEC 01-14-2015 [facility] NONINFECTIO [facility] US INC GASTROENTER ITIS&COLITI S V2501 GENERAL 12-25-2014 [facility] COUNSELING DISTRICT PRESCRIPTIO HLTH DEPT N ORAL JORGE CONTRACEPTS Medications Na ND Rx Da Fi Fi [...] MG #3 93 TA 8 BL ET HY 00 05 06 [address] 40 -2 -2 .0 00 TE ti OC 60 4- 3- 00 01 ve OD 12 20 20 18 AI ON 40 17 17 53 D -A 1 24 PH CE AR TA MA VT CY NO PH #3 93 7. 8 5- 32 5 ON 65 05 06 6. 2 00 RI Ac DA 86 -2 -2 00 00 TE ti NS 20 3- 3- 0 01 ve ET 39 20 20 18 AI RO 01 17 17 50 D N 0 28 PH OD AR T MA 4 CY MG #3 TA 93 BL 8 ET CE 00 02 03 20 10 00 [...] #3 EA 93 R 8 [place] SP AZ 50 01 02 6. 5 00 RI Ac IT 11 -1 -1 00 00 TE ti HR 10 2- 7- 0 01 ve OM 78 20 20 16 AI YC 76 17 17 64 D IN 6 17 PH AR 25 MA 0 CY MG #3 TA 93 BL 8 ET CI 00 01 02 20 10 00 RI Ac SD 14 -1 -1 .0 00 TE ti OF 39 6- 7- 00 01 ve LO 92 20 20 16 AI XA 80 17 17 70 D CI 1 09 PH N AR HC MA L CY 50 0 #3 MG 93 8 TA B ON 65 01 02 9. 3 00 [...] 12 01 60 30 00 RI Ac SD 09 -2 -2 .0 00 TE ti [...] #3 93 CA 8 PS UL E Encounters Encounter Start End Date Code Location Performer Type Date [facility] - 7 7 [facility] - 7 7 [facility] - [facility] 6 [facility] - [facility] 6 [facility] 6 [facility] - 6 6 [facility] - 6 6 [facility] - 6 6 [facility] - 6 6 [facility] - 6 6 [facility] - 5 5 [facility] - 5 5 [facility] - 5 5 [facility] - 5 5 [facility]
--- OUTSIDE RECORDS SUMMARY | 2017-03-22 12:09 | External Medical Summary Rpt | CCD ---
Demographics Preferred Language Estonian Marital Status Unknown Pentecostal Affiliation Unknown Race Unknown Ethnic Group Unknown Author Author , FARNAZ OSEI Address Unknown Phone Immunization Unable to retrieve immunization data due to connection failure with Immunization Registry. Please try again later.
--- OUTSIDE RECORDS SUMMARY | 2017-03-22 12:09 | External Medical Summary Rpt | CCD ---
Author Author , FARNAZ OSEI Address Unknown Phone [email or web address] Care Team Providers Care Sourcer Name Role Phone TREVON LESTER Unavailable Unavailable [facility] Un[facility] Un[facility] INC, [facility], Unavailable Unavailable [facility], Unavailable Unavailable [facility] Unavailable Unavailable IMAGING ASS, [facility], Unavailable Unavailable PLLC, [facility], [facility], Unavailable Unavailable [facility] Unavailable Unavailable [id number] # 0393, [facility] [address] # 0393 SCIFRES, SCIFRES Unavailable Unavailable [facility] Unavailable Unavailable DEPT [facility], [facility] DEPT JORGE Purpose Continuity of Care Document - 12-25-2014 through 2016 Problems Code Diagnosis DOS Provider Status K529 NONINFECTIV 10-05-2016 [facility] E PHYSICIANS, GASTROENTER [facility] ITIS & COLITIS UNS H5203 HYPERMETROP 09-03-2016 [facility] IA BILATERAL J03082 AC 08-22-2016 [facility] SUPPURATIVE PHYSICIAN OM W/O GROUP RUPT EAR DRUM RECUR RT EAR J069 ACUTE UPPER 07-27-2016 [facility] RESPIRATORY INFECTION UNSPECIFIED K5289 OT SPEC 07-27-2016 [facility] NONINFECTIV E GASTROENTER ITIS & COLITIS N369 URETHRAL 06-01-2016 [facility] DISORDER UNSPECIFIED J029 ACUTE 05-27-2016 [facility] PHARYNGITIS PHYSICIANS, [facility] UNSPECIFIED R05 COUGH 05-27-2016 [facility] R0602 SHORTNESS 05-27-2016 [facility] OF BREATH PHYSICIANS, [facility] R0989 OT SPEC SX 05-27-2016 [place] & SIGNS MEDICAL INVLV THE IMAGING ASS CIRC & RESP SYS J00 ACUTE 05-26-2016 [facility] NASOPHARYNG PHYSICIAN ITIS COMMON GROUP COLD R112 NAUSEA WITH 05-26-2016 [facility] VOMITING PHYSICIAN UNSPECIFIED GROUP J0190 ACUTE 05-22-2016 [facility] SINUSITIS UNSPECIFIED [id number] INSECT BITE 05-10-2016 [facility] RT FRONT INC WALL THORAX INIT G21809F INSECT BITE 05-10-2016 [facility] LT FRONT INC WALL THORAX INIT T29655N INSECT BITE 05-10-2016 [facility] NONVENOM PHYSICIANS, UNS FRONT PLLC WALL THORAX INIT T21539N INSECT BITE 05-10-2016 [facility] ABDOMINAL PHYSICIANS, WALL PLLC INITIAL ENCOUNTER L299 PRURITUS 05-09-2016 [facility] UNSPECIFIED PHYSICIANS, PLLC X6232XF INSCT BITE 05-09-2016 [facility] OTH PART INC HEAD INIT ENCNTR G38468C INSECT BITE 05-09-2016 [facility] NONVENOMOUS INC RT LOWER LEG INITIAL ENC G88506J INSECT BITE 05-09-2016 [facility] NONVENOMOUS INC LT LOWER LEG INITIAL ENC N920 EXCESS & 05-06-2016 [facility] FREQUENT PHYSICIANS MENSTRUATIO GROUP N W/REGULAR CYCLE N944 PRIMARY 05-06-2016 [facility] DYSMENORRHE PHYSICIANS A GROUP R102 PELVIC AND 05-06-2016 [facility] PERINEAL PHYSICIANS PAIN GROUP R1084 GENERALIZED 05-06-2016 [facility] ABDOMINAL PAIN R1030 LOWER 05-03-2016 [facility] ABDOMINAL PHYSICIANS, PAIN PLLC UNSPECIFIED F14790 ACUTE 04-16-2016 [facility] SUPPURATIVE PHYSICIAN OM W/O GROUP RUPT EAR DRUM BILAT N3000 ACUTE 03-13-2016 [facility] CYSTITIS PHYSICIANS, WITHOUT PLLC HEMATURIA N390 URINARY 03-13-2016 [facility] TRACT PHYSICIANS, INFECTION PLLC SITE NOT SPECIFIED Z18442 PAIN IN 12-01-2015 [place] LEFT TOES MEDICAL IM[facility]ING ASS P80227E CONTUSION 12-01-2015 [facility] GREAT PHYSICIANS, TOE W/O PLLC DAMAGE NAIL INIT ENC K140 GLOSSITIS 11-21-2015 [facility] INC L089 LOCAL INF 11-21-2015 [facility] THE SKIN & PHYSICIANS, SUBCUTANEOU PLLC S TISSUE UNS K8020 CALCULUS GB 08-09-2015 [place] W/O MEDICAL CHOLECYSTIT IMAGING ASS IS W/O OBSTRUCTION R1011 RIGHT UPPER 08-09-2015 [facility] PAIN INC R109 UNSPECIFIED 08-09-2015 [place] ABDOMINAL MEDICAL PAIN IMAGING ASS K8050 CALCULUS BD 08-08-2015 [facility] CHOLANGITIS INC /CHOLECYST W/O OBST R1033 PERIUMBILIC 08-08-2015 [place] PAIN MEDICAL IMAGING ASS R079 CHEST PAIN 07-01-2015 [place] UNSPECIFIED MEDICAL IMAGING ASS R091 PLEURISY 07-01-2015 [facility] INC L600 INGROWING 06-13-2015 [facility] NAIL PODIATRY L259 UNSPECIFIED 06-04-2015 [facility] CONTACT PHYSICIANS DERMATITIS GROUP UNSPECIFIED CAUSE M2570 OSTEOPHYTE 04-18-2015 [facility] UNSPECIFIED PODIATRY JOINT [id number] UNS OPEN 04-18-2015 [facility] WOUND UNS PHYSICIANS, TOES PLLC W/DAMAGE NAIL INITIAL Z3041 ENCOUNTER 03-12-2015 [facility]TH DEPT E JORGE CONTRACEPTI VE PILLS Z3189 ENCOUNTER 03-12-2015 [facility] FOR OTHER DISTRICT PROCREATIVE HLTH DEPT MANAGEMENT JORGE V77213 SWIMMERS 03-06-2015 [facility] E[facility] PHYSICIANS, BILATERAL PLLC H6093 UNSPECIFIED 03-06-2015 [facility] OTITIS PHYSICIANS, EXTERNA PLLC BILATERAL J020 STREPTOCOCC 03-06-2015 [facility] PHARYNGITIS [facility] Z136 ENCOUNTER 02-26-2015 [facility] CARDIOVASCU JORGE LAR DISORDERS Z308 ENCOUNTER 02-26-2015 [facility] CONTRACEPTI [facility] DEPT VE JORGE MANAGEMENT 2449 UNSPECIFIED 02-03-2015 [facility]YPOTHY[facility]ID [facility] ISM 7804 DIZZINESS 02-03-2015 [facility] 5990 URINARY 01-22-2015 [facility] [...] 1 24 PH CE AR TA MA [place] CY NO PH #[phone]. [phone] [...] 01 02 20 10 00 RI Ac HI 14 -1 -1 .0 00 TE ti [...] 12 01 60 30 00 RI Ac HI 09 -2 -2 .0 00 TE ti [...] End Date Code Location Performer Type Date [facility] - 7 7 [facility] - 7 7 [facility] - 6 6 [facility] - 6 6 [facility] - 6 6 [facility] - 6 6 [facility] - 6 6 [facility] - 6 6 [facility] - 6 6 [facility] - 6 6 [facility] - 5 5 [facility] - 5 5 [facility] - 5 5 [facility] - [address] [facility]
--- OUTSIDE RECORDS SUMMARY | 2017-03-22 12:09 | External Medical Summary Rpt | CCD ---
Demographics Preferred Language Czech Marital Status Unknown Tenriism Affiliation Unknown Race Unknown Ethnic Group Unknown Author Author , FARNAZ OSEI Address Unknown Phone Immunization Unable to retrieve immunization data due to connection failure with Immunization Registry. Please try again later.
--- OUTSIDE RECORDS SUMMARY | 2017-03-22 12:10 | External Medical Summary Rpt ---
Author Author FARNAZ Velasquez, [employer] Organization [employer] Address Unknown Phone Unavailable Results Choriogonadotropin.beta subunit [Units] in 24 hour Urine Observa Value Referen Units Interpr Notes Date tion ce etation Range Choriogon NEG No No No October 05 adotropin informati informati informati 2016 6:15 .beta on in on in on in PM subunit source source source [Units] data data data in 24 hour Urine CHLAMYDIA AND GONORRHEA TESTING Observa Value Referen Units Interpr Notes Date tion ce etation Range COLLECT A. No No No No Dec 25 OR ALFRED, informa informa informa informa 2015 RN tion in tion in tion in tion in 8:45 AM source source source source data data data data ETHNICI WHITE, No No No No Dec 25 TY NON-HIS informa informa informa informa 2015 PANIC tion in tion in tion in tion in 8:45 AM source source source source data data data data KIT No No No No Dec 25 EXPIRAT 6 informa informa informa informa 2015 ION tion in tion in tion in tion in 8:45 AM DATE source source source source data data data data SYMPTOM NO No No No No Dec 25 S informa informa informa informa 2015 tion in tion in tion in tion in 8:45 AM source source source source data data data data REASON INITIAL No No No No Dec 25 FOR FAMILY informa informa informa informa 2015 REQUEST tion in tion in tion in tion in 8:45 AM PLANNIN source source source source G VISIT data data data data SPECIME URINE No No No No Dec 25 N informa informa informa informa 2015 SOURCE tion in tion in tion in tion in 8:45 AM source source source source data data data data PREGNAN NO No No No No Dec 25 T informa informa informa informa 2015 tion in tion in tion in tion in 8:45 AM source source source source data data data data CHART [id number] No No No Dec 25 NUMBER [id number] informa informa informa informa 2015 tion in tion in tion in tion in 8:45 AM source source source source data data data data Chlamyd NEGATIV No No No NEGATIV Dec 25 ia E informa informa informa E 2015 trachom tion in tion in tion in RESULT= 8:45 AM atis source source source WITHIN rRNA data data data NORMAL [Presen ce] in LIMITSP Unspeci OSITIVE fied specime RESULT= n by Probe & ABNORMA target LEQUIVO GIO amplifi RESULT= cation method INDETER MINATEU NSATISF ACTORY RESULT= INVALID Neisser NEGATIV No No No NEGATIV Dec 25 ia E informa informa informa E 2015 gonorrh tion in tion in tion in RESULT= 8:45 AM oeae source source source WITHIN rRNA data data data NORMAL [Presen ce] in LIMITSP Unspeci OSITIVE fied specime RESULT= n by Probe & ABNORMA target LEQUIVO GIO amplifi RESULT= cation method INDETER MINATEU NSATISF ACTORY RESULT= INVALID THE APTIMA COMBO 2 ASSAY IS NOT INTENDE D FOR THE EVALUAT ION OF SUSPECT EDSEXUA L ABUSE OR FOR OTHER MEDICO- LEGAL INDICAT IONS. FOR THOSE PATIENT S FORWHOM A FALSE POSITIV E RESULT MAY HAVE ADVERSE PSYCHO- SOCIAL IMPACT, [facility] NG.\.br \This report contain s patient informa tion that must be protect ed in accorda nce with the Health Insuran ce Portabi lity and Account ability Act. CHLAMYDIA AND GONORRHEA TESTING Observa Value Referen Units Interpr Notes Date tion ce etation Range COLLECT A. No No No No Dec 25 OR ALFRED, informa informa informa informa 2015 RN tion in tion in tion in tion in 8:45 AM source source source source data data data data ETHNICI WHITE, No No No No Dec 25 TY NON-HIS informa informa informa informa 2015 PANIC tion in tion in tion in tion in 8:45 AM source source source source data data data data KIT No No No No Dec 25 EXPIRAT 6 informa informa informa informa 2015 ION tion in tion in tion in tion in 8:45 AM DATE source source source source data data data data SYMPTOM NO No No No No Dec 25 S informa informa informa informa 2015 tion in tion in tion in tion in 8:45 AM source source source source data data data data REASON INITIAL No No No No Dec 25 FOR FAMILY informa informa informa informa 2015 REQUEST tion in tion in tion in tion in 8:45 AM PLANNIN source source source source G VISIT data data data data SPECIME URINE No No No No Dec 25 N informa informa informa informa 2015 SOURCE tion in tion in tion in tion in 8:45 AM source source source source data data data data PREGNAN NO No No No No Dec 25 T informa informa informa informa 2015 tion in tion in tion in tion in 8:45 AM source source source source data data data data CHART [id number] No No No No Dec 25 NUMBER [id number] informa informa informa informa 2015 tion in tion in tion in tion in 8:45 AM source source source source data data data data Chlamyd Pending No No No No Dec 25 ia informa informa informa informa 2015 trachom tion in tion in tion in tion in 8:45 AM atis source source source source rRNA data data data data [Presen ce] in Unspeci fied specime n by Probe & target amplifi cation method Neisser Pending No No No \.br\Dec 25 ia informa informa informa is 2015 gonorrh tion in tion in tion in report 8:45 AM oeae source source source contain rRNA data data data s [Presen patient ce] in Unspeci informa fied tion specime that n by must be Probe & target protect ed in amplifi accorda cation nce method with the Health Insuran ce Portabi lity and Account ability Act.
--- OUTSIDE RECORDS SUMMARY | 2017-03-22 12:10 | External Medical Summary Rpt ---
[...] MAY HAVE ADVERSE PSYCHO- SOCIAL IMPACT, [facility] RETESTI NG.\.br \This report contain s [...]
--- NOTE | 2017-03-22 13:05 | Urgent Treatment Center Report ---
History of Present Issue Date/Time Seen by Provider 03/22/17 4067 Visit Reason Pt arrived:Walked Presenting Problem:PT STATES THAT SHE HAD A TOOTH PULLED LAST WEEK AND SHE NOW HAS KNOTS ON HER NECK AND AROUND HER EAR WITH SWELLING AND PAIN. Location if Accident: Onset of symptoms date/time:/ or onset unknown for:MEDICAL HX UNKNOWN Have you (or family members/close friends) recently traveled outside the [place]? N If Yes, where/when: Have you had exposure to infectious disease within the past month? TB? Other? Specify: Here w/ mother c/o increasing pain and swelling s/p top left molar extraction last week w/ Dr. Farris. No medication other than pain medication prescribed after extraction. Saw Dr. Farris for follow up and suture removal "I think Wednesday", 3 days ago. Pain and swelling then, "but not this bad". Didn't call him today. Tylenol and ibuprofen barely helping. No known fevers. Allergy to amoxicillin, hives but has taken keflex w/o any reaction Source patient Exam Limitations clinical condition (pain) ALLERGIES Coded Allergies: amoxicillin (Intermediate, I-HIVES 12/01/15) Home Medications Active Scripts Ondansetron (Zofran 4MG Odt) 4 MG PO Q6HP PRN NAUSEA AND VOMITING #6 ODT Prov: 10/05/16 Hydroxyzine Hcl (Hydroxyzine) 50 MG PO Q8HP PRN anxiety #20 CAP Prov: 01/20/17 History Medical History General CAD? No Angina: No AK: No Hypertension? No Hyperlipidemia? No CHF? No DVT? No PE? No COPD? No Asthma? No Anemia? No GERD? No Gastric ulcers? No GI Bleed? No Hernia? No Thyroid Problems? No Hypothyroidism? No CVA? No Seizures? No Diabetes? No Insulin Dependent: No Insulin Pump: No Home FSBS? No Renal Insuffiency? No UTI? Yes Stones? No BPH? No GB Disease: No Nephritic Syndrome? No Asplenia? No Hepatitis? No Sickle Cell Disease? No Arthritis? No Migraines? No Cataracts? No Glaucoma? No MRSA? No HIV? No TB? No Anxiety? No Depression? No Cancer? No More? No Immunization HX DT/Tetanus 1-4 YRS Surgical Hx Previous Surgery?Y LT [employer] Hx LMP Now Social History Smoking Hx Smoker: Never Smoker Tobacco: No Alcohol Alcohol: No Review of Systems All Other Systems Reviewed and Negative Constitutional see HPI, denies malaise Eyes denies inflammation, denies pain ENT see HPI, ear pain (left only), throat pain (today), other (left jaw pain). denies: ear discharge, mouth swelling, tongue swelling. Respiratory denies shortness of breath, denies stridor Cardiovascular denies chest pain Gastrointestinal denies nausea, denies vomiting Musculoskeletal denies other (body aches) Skin denies change in color, denies lesions Psychiatric/Neurological headache ("from the swelling") Physical Exam Vital Signs Vital Signs Date Time Temp Pulse Resp B/P Pulse O2 O2 Flow FiO2 Ox Delivery Rate 03/22 1214 98.0 78 18 129/69 99 General Appearance no apparent distress Eye Exam - bilateral eye normal exam Ear, Nose, Throat right EAC and TM unremarkable, marked tenderness w/ any manipulation left ear, TM normal, no left sinus tenderness, marked left maxillary tenderness w/o mandibular tenderness, top left molar recently extracted, severe TTP w/o visible erythema or swelling, visible swelling surrounding left tonsillar lymphnode region Neck full range of motion, lymphadenopathy (L), marked TTP Respiratory Status No: respiratory distress (airway patent), productive cough, non productive cough. Lung Sounds anterior: lungs clear. posterior: lungs clear. bilateral: lungs clear. Cardiovascular regular rate/rhythm, no peripheral edema, no murmur Neurologic alert, oriented x 3 Skin normal color, warm/dry Lymphatic marked lymphadenopathy left parotid, tonsillar, superficial cervical all > 1cm, severe TTP, nonmobile Medical Decision Making LABS/Meds/Orders Pt receiving controlled substance in ED? No Consult MD Physician Consult Consult/PCP Dr. Bijan Farris, dentist Time Called 1252 Reason Pt. Condition Comments Entire office out to lunch at 1250. Did note leave VM 1304: Spoke to Mayra. Dr. Farris remains out to lunch but should be back in approx 10 minutes. Took message and will have him call me. 1320: Dr. Farris returned call. Discussed HPI and current exam. He wants to see pt immediately. Offered to begin treatment here and he declined. Send her straight to him and if he needs anything he can't do, he will call to let me know and send pt back. Pt agrees to report directly to Dr. Farris's office Departure Departure Time of Disposition 1327 Disposition DC Home or Self Care(routine) Clinical Impression Primary Impression: Dental abscess Secondary Impressions: History of tooth extraction Qualifiers: Tooth loss class: unspecified tooth loss Qualified Code: K08.409 - Partial loss of teeth, unspecified cause, unspecified class Condition STABLE Referrals BIJAN FARRIS Report directly to his office. He is aware you are coming Patient Instructions Tooth Abscess Additional Instructions report directly to Dr. Farris as you need further evaluation and management Discharge Counseling Counseled pt/family regarding diagnosis, follow up needs at 132
[2017-03-22 13:29] VITALS: BP 129/69
== END 2017-03-22 13:29 | disposition home or self-care (01) ==
LOC: UTC 11:54
DX: K04.7 Periapical abscess without sinus (principal); K08.409 Partial loss of teeth, unspecified cause, unspecified class; Z88.1 Allergy status to other antibiotic agents